=== PATIENT | female | born 1980 | race Asian ===

== ENCOUNTER 2018-06-16 14:08 | Emergency (ER) | payer MEDICAID ==
[~2018-06-16] VITALS: Ht 172.7 cm; Wt 86.2 kg
[~2018-06-16 14:08] MED LIST: GLIM1TAB2 PO; MET5XLT PO; PIP3PBAE IV
[2018-06-16] MEDS ORDERED: cloNIDine HCL 0.1 MG TAB ONE (14:26)
[2018-06-16] MEDS ORDERED: cloNIDine HCL 0.1 MG TAB PO ONE (14:30)
[2018-06-16] MEDS ORDERED: hydrALAZINE HCL 10 MG TAB PO ONE (17:00)
[2018-06-16 17:43] VITALS: BP 160/101
== END 2018-06-16 17:48 | disposition home or self-care (01) ==
LOC: ER 14:08
DX: I10 Essential (primary) hypertension (principal); E11.9 Type 2 diabetes mellitus without complications; Z88.0 Allergy status to penicillin